=== PATIENT | male | born 1985 | race Caucasian/White ===

== ENCOUNTER 2018-04-19 11:35 | Emergency (ER) | payer MEDICAID, OTHER ==
[~2018-04-19] VITALS: Ht 185.4 cm; Wt 80.9 kg
[2018-04-19] MEDS ORDERED: ketorolac trometh. 30mg/ml inj. IM ONE (12:05)
[2018-04-19 13:36] LABS: CLARITY,URINE CLEAR (Clear); COLOR,URINE YELLOW (Yellow); GLUCOSE, URINE NEGATIVE (Neg); KETONES,URINE NEGATIVE (Neg); LEUKOCYTE ESTERASE ,URINE NEGATIVE (Neg); NITRITES, URINE NEGATIVE (Neg); OCCULT BLOOD,URINE NEGATIVE (Neg); PH,URINE 7.5 (4.8-8.0); PROTEIN,URINE NEGATIVE (Neg)
[2018-04-19 13:38] LABS: UA COLLECTION TYPE NON-SPECIFIED
[2018-04-19] MEDS ORDERED: DOXY100C2 PO (14:06)
[2018-04-19] MEDS ORDERED: CefTRIAXone 250MG IM Kit w/LIDOcaine IM ONE (14:15)
[2018-04-19 14:23] VITALS: BP 150/80
[2018-04-19] MEDS ORDERED: HYDROcodone/acetaminophen 10/325mg tab PO ONE (14:25)
== END 2018-04-19 14:38 | disposition home or self-care (01) ==
LOC: ER 11:35
DX: N43.2 Other hydrocele (principal); N45.1 Epididymitis; Z79.899 Other long term (current) drug therapy; Z56.0 Unemployment, unspecified
CPT/HCPCS: 36415; 76870; 81003; 87491; 87591; 96372; 99285; J0696; J1885